=== PATIENT | female | born 1965 | race Caucasian/White ===

== ENCOUNTER 2017-03-13 22:45 | Emergency (ER) | payer OTHER ==
[2017-03-14] MEDS: IPRATROPIUM (NEB) 0.5 MG/2.5 ML AMP NEB (01:30)
[2017-03-14] MEDS: ALBUTEROL 0.083% (NEB) 2.5 MG/3 ML AMP NEB ×2 (01:30→01:31)
[2017-03-14] MEDS: predniSONE 20 MG TAB PO (01:57)
== END 2017-03-14 03:15 | disposition home or self-care (01) ==
LOC: FTE 22:45
DX: R05 Cough (principal); R06.2 Wheezing; R07.89 Other chest pain
CPT/HCPCS: 71045; 93005; 94644; 99284-25

== ENCOUNTER 2017-03-21 10:56 | Emergency (ER) | payer SELFPAY, OTHER ==
[2017-03-21] MEDS: IPRATROPIUM (NEB) 0.5 MG/2.5 ML AMP INH (13:30)
[2017-03-21] MEDS ORDERED: METHYLPREDNISOLONE 125 MG INJ IV (13:30)
[2017-03-21] MEDS: LEVALBUTEROL (NEB) 1.25 MG/0.5 ML AMP HHN (13:30)
[2017-03-21] MEDS: predniSONE 20 MG TAB PO (14:34)
[2017-03-21 14:38] LABS: ADD MAN DIFF? NO
[2017-03-21 14:39] LABS: BASOPHIL # 0.1 10^3/ul (0.0-0.1); BASOPHILS % 0.8 % (0.0-2.0); EOSINOPHILS # 0.4 10^3/ul (0.0-0.5); EOSINOPHILS % 4.9 % (0.0-7.0); HEMATOCRIT 45.7 % (37.0-47.0); HEMOGLOBIN 15.3 g/dl (12.0-16.0); LYMPHOCYTES # 1.4 10^3/ul (0.8-2.9); LYMPHOCYTES % 17.1 % (15.0-51.0); MEAN CORPUSCULAR HEMOGLOBIN 33.6 pg (29.0-33.0); MEAN CORPUSCULAR HGB CONC 33.5 g/dl (32.0-37.0); MEAN CORPUSCULAR VOLUME 100.2 fl (82.0-101.0); MEAN PLATELET VOLUME 8.6 fl (7.4-10.4); MONOCYTE # 0.6 10^3/ul (0.3-0.9); MONOCYTES % 7.6 % (0.0-11.0); NEUTROPHIL # 5.5 10^3/ul (1.6-7.5); NEUTROPHILS % 69.3 % (39.0-77.0); PLATELET COUNT 333 10^3/UL (140-415); RED BLOOD COUNT 4.56 10^6/ul (4.20-5.40); RED CELL DISTRIBUTION WIDTH 13.2 % (11.5-14.5)
[2017-03-21 15:04] LABS: ALANINE AMINOTRANSFERASE 26 IU/L (13-69); ALBUMIN 4.5 g/dl (3.3-4.9); ALBUMIN/GLOBULIN RATIO 1.25; ALKALINE PHOSPHATASE 63 IU/L (42-121); ANION GAP 14 (8-16); ASPARTATE AMINO TRANSFERASE 25 IU/L (15-46); BILIRUBIN,INDIRECT 0.4 mg/dl (0-1.1); BILIRUBIN,TOTAL 0.4 mg/dl (0.2-1.3); BLOOD UREA NITROGEN 17 mg/dl (7-20); CALCIUM 8.8 mg/dl (8.4-10.2); CARBON DIOXIDE 29 mmol/L (21-31); CHLORIDE 100 mmol/L (97-110); CREATININE 0.77 mg/dl (0.44-1.00); GLUCOSE 106 mg/dl (70-220); POTASSIUM 3.9 mmol/L (3.5-5.1); SODIUM 139 mmol/L (135-144); TOTAL PROTEIN 8.1 g/dl (6.1-8.1)
[2017-03-21 15:11] LABS: D-DIMER 507.42 ng/ml (<460)
== END 2017-03-21 16:57 | disposition home or self-care (01) ==
LOC: FTE 10:56
DX: R06.02 Shortness of breath (principal)
CPT/HCPCS: 36415; 71045; 80053; 85025; 85378; 93005; 94664; 99285-25

== ENCOUNTER 2017-07-19 14:42 | Emergency (ER) | payer OTHER, MEDICAID ==
[2017-07-19 16:29] LABS: ADD UMIC NO; UR ASCORBIC ACID NEGATIVE (NEGATIVE); UR BILIRUBIN (Dip) NEGATIVE (NEGATIVE); UR BLOOD (Dip) NEGATIVE (NEGATIVE); UR CLARITY CLEAR (CLEAR); UR COLOR STRAW (YELLOW); UR GLUCOSE (Dip) NEGATIVE (NEGATIVE); UR KETONES (Dip) NEGATIVE (NEGATIVE); UR LEUKOCYTE ESTERASE (Dip) NEGATIVE Leu/ul (NEGATIVE); UR NITRITE (Dip) NEGATIVE (NEGATIVE); UR SPECIFIC GRAVITY (Dip) 1.008 (1.003-1.030); UR TOTAL PROTEIN (Dip) NEGATIVE (NEGATIVE); UR UROBILINOGEN (Dip) NEGATIVE (NEGATIVE)
== END 2017-07-19 17:47 | disposition home or self-care (01) ==
LOC: FTE 14:42
DX: R10.2 Pelvic and perineal pain (principal)
CPT/HCPCS: 72170; 76830; 76856; 81003; 81025; 99284-25

== ENCOUNTER 2018-03-26 00:14 | Emergency (ER) | payer OTHER | END 2018-03-26 01:46 | disposition home or self-care (01) | LOC: FTE 00:14 | DX: R21 Rash and other nonspecific skin eruption (principal) | CPT/HCPCS: 99283 ==